=== PATIENT | male | born 1945 | race Caucasian/White ===

== ENCOUNTER 2017-03-09 07:39 | Emergency (ER) | payer MEDICARE, OTHER ==
[~2017-03-09] VITALS: Ht 172.7 cm; Wt 79.5 kg
[~2017-03-09 07:39] MED LIST: AMLO-147 PO; ASPI-664 PO; ATOR40TA68 PO; CANA100T PO; CARI350T PO; GABA100C14 PO; LANT3I SC; LIRA0.6P SQ; NAPR-260 PO
[2017-03-09 07:42] VITALS: Ht 172.7 cm; Wt 79.5 kg
[2017-03-09 08:33] LABS: ADD SCAN DIFF NO
[2017-03-09 08:38] LABS: BASOPHILS % 0.4 % (0.0-2.0); EOSINOPHILS # 0.1 10^3/ul (0.0-0.5); HEMATOCRIT 48.5 % (42.0-52.0); HEMOGLOBIN 16.6 g/dl (14.0-18.0); LYMPHOCYTES # 1.6 10^3/ul (0.8-2.9); LYMPHOCYTES % 23.1 % (15.0-51.0); MEAN CORPUSCULAR HGB CONC 34.2 g/dl (32.0-37.0); MEAN CORPUSCULAR VOLUME 84.6 fl (82.0-101.0); MEAN PLATELET VOLUME 12.1 fl (7.4-10.4); MONOCYTE # 0.5 10^3/ul (0.3-0.9); NEUTROPHIL # 4.8 10^3/ul (1.6-7.5); NEUTROPHILS % 68.2 % (39.0-77.0); PLATELET COUNT 196 10^3/UL (140-415); RED BLOOD COUNT 5.73 10^6/ul (4.70-6.10); RED CELL DISTRIBUTION WIDTH 12.2 % (11.5-14.5)
[2017-03-09 08:57] LABS: ANION GAP 16 (8-16); BLOOD UREA NITROGEN 13 mg/dl (7-20); CALCIUM 9.4 mg/dl (8.4-10.2); CARBON DIOXIDE 25 mmol/L (21-31); CHLORIDE 102 mmol/L (97-110); CREATININE 0.63 mg/dl (0.61-1.24); GLUCOSE 362 mg/dl (70-220); POTASSIUM 4.1 mmol/L (3.5-5.1); SODIUM 139 mmol/L (135-144)
--- NOTE | 2017-03-09 09:06 | RADRPT ---
PROCEDURE: XR Chest. CLINICAL INDICATION: Chest pain TECHNIQUE: Single frontal view of the chest was obtained COMPARISON: 08/01/2016 FINDINGS: The heart is enlarged. The thoracic aorta is calcified. There are mild bibasilar atelectatic changes. The lungs are otherwise clear. There is no pleural effusion or pneumothorax. RPTAT: AA IMPRESSION: Mild cardiomegaly. Calcified aorta consistent with atherosclerotic disease. Mild linear bibasilar atelectatic changes. .Max Conway MD, Date Time Electronically viewed and signed by .Max Conway MD, on 03/09/2017 09:06 .S/
[2017-03-09 09:21] LABS: TROPONIN-I < 0.012 ng/ml (0.00-0.12)
[2017-03-09 09:23] LABS: INR 0.95; PARTIAL THROMBOPLASTIN TIME 28.7 Sec (25.0-35.0); PROTIME 12.7 Sec (12.2-14.2)
[2017-03-09 09:26] LABS: D-DIMER 300.43 ng/ml (<460)
[2017-03-09 09:30] VITALS: BP 157/88; PULSE 107; RESP 20
[2017-03-09] MEDS ORDERED: ACET500C5 PO (09:31)
--- NOTE | 2017-03-09 09:32 | ERD ---
ER Documentation Chief Complaint Date/Time DATE: 03/09/17 TIME: 09:32 Chief Complaint back pain radiating to chest x 3 weeks after lifting heavy box HPI 71-year-old male with a history of diabetes and hypertension presenting with left-sided chest pain for the past month. He states the pain is occasionally in his left upper back and also in the left side of his chest, sharp, constant, worse with deep inspiration. He has had no associated cough or phlegm production. He has no associated fever, chills, shortness of breath, leg swelling or leg pain. He has a very remote history of back injury after lifting a heavy box, however there is no preceding trauma to his back and chest pain 1 month ago. Pain is not worse with exertion. He denies any dizziness or associated diaphoresis. He has been taking naproxen for the pain with some relief. No recent travel, immobilization, or surgeries. No history of blood clots ROS All systems reviewed and are negative except as per history of present illness. Medications Home Meds Active Scripts Acetaminophen* (Tylophen*) 500 Mg Capsule, 2 CAP PO Q8H Y for PAIN AND OR ELEVATED TEMP, #20 CAP Prov:TAM MORENO MD 03/09/17 Carisoprodol* (Soma*) 350 Mg Tablet, 350 MG PO TID Y for MUSCLE SPASMS, #15 TAB Prov:MALKA DIAL MD 08/01/16 Naproxen* (Naprosyn*) 500 Mg Tablet, 500 MG PO BID Y for PAIN AND/OR INFLAMMATION, #30 TAB Prov:MALKA DIAL MD 08/01/16 Reported Medications Insulin Glargine* (Lantus*) 100 Unit/Ml Soln, 20 UNIT SC DAILY, #1 VIAL 08/01/16 Gabapentin* (Gabapentin*) 100 Mg Capsule, 100 MG PO TID, #90 CAP 08/01/16 Atorvastatin* (Atorvastatin*) 40 Mg Tablet, 40 MG PO QHS, #30 TAB 08/01/16 Canagliflozin (Invokana) 100 Mg Tablet, 100 MG PO DAILY, TAB 08/01/16 Amlodipine Besylate* (Amlodipine Besylate*) 10 Mg Tablet, 10 MG PO DAILY, #30 TAB 08/01/16 Liraglutide (Victoza 2-Akash) 0.6 Mg/0.1 Ml Pen.injctr, 1.2 MG SQ DAILY, SYR 08/01/16 Aspirin* (Aspirin* EC) 81 Mg Tablet.dr, 81 MG PO DAILY, TAB 08/01/16 Allergies Allergies: Coded Allergies: No Known Allergy (Unverified , 05/01/16) PMhx/Soc History of Surgery: No Anesthesia Reaction: No Hx Neurological Disorder: No Hx Respiratory Disorders: No Hx Cardiac Disorders: Yes (HTN) Hx Psychiatric Problems: No Hx Miscellaneous Medical Probl: Yes (DM) Hx Alcohol Use: Yes Hx Substance Use: No Hx Tobacco Use: No Smoking Status: Never smoker FmHx Family History: No diabetes Physical Exam Vitals Vital Signs Date Time Temp Pulse Resp B/P Pulse Ox O2 Delivery O2 Flow Rate FiO2 03/09/17 09:30 107 20 157/88 99 Room Air 03/09/17 08:02 100 17 151/82 100 Room Air 03/09/17 07:42 97.7 98 18 175/87 97 Physical Exam Const: Well-appearing, no distress Head: Atraumatic Eyes: Normal Conjunctiva ENT: Normal External Ears, Nose and Mouth. Neck: Full range of motion..~ No meningismus. Resp: Clear to auscultation bilaterally Cardio: Regular rate and rhythm, no murmurs Abd: Soft, non tender, non distended. Normal bowel sounds Skin: No petechiae or rashes Back: No midline or flank tenderness Ext: No cyanosis, or edema Neur: Awake and alert Psych: Normal Mood and Affect Result Diagram: 03/09/17 0820 03/09/17 0820 Results 24 hrs Laboratory Tests Test 03/09/17 08:20 White Blood Count 7.010^3/ul Red Blood Count 5.7310^6/ul Hemoglobin 16.6g/dl Hematocrit 48.5% Mean Corpuscular Volume 84.6fl Mean Corpuscular Hemoglobin 29.0pg Mean Corpuscular Hemoglobin Concent 34.2g/dl Red Cell Distribution Width 12.2% Platelet Count 10252^3/UL Mean Platelet Volume 12.1fl Neutrophils % 68.2% Lymphocytes % 23.1% Monocytes % 7.0% Eosinophils % 1.0% Basophils % 0.4% Nucleated Red Blood Cells % 0.0/100WBC Neutrophils # 4.810^3/ul Lymphocytes # 1.610^3/ul Monocytes # 0.510^3/ul Eosinophils # 0.110^3/ul Basophils # 0.010^3/ul Nucleated Red Blood Cells # 0.010^3/ul Prothrombin Time 12.7Sec Prothrombin Time Ratio 1.0 INR International Normalized Ratio 0.95 Activated Partial Thromboplast Time 28.7Sec D-Dimer 300.43ng/ml D-Dimer Comment Sodium Level 139mmol/L Potassium Level 4.1mmol/L Chloride Level 102mmol/L Carbon Dioxide Level 25mmol/L Anion Gap 16 Blood Urea Nitrogen 13mg/dl Creatinine 0.63mg/dl Glucose Level 362mg/dl Calcium Level 9.4mg/dl Troponin I < 0.012ng/ml Procedures/MDM EKG: Rate/Rhythm: Sinus tachycardia at 102 bpm QRS, ST, T-waves: No changes consistent w/ acute ischemia Impression: No evidence of ischemia or arrhythmia Chest x-ray does not show any acute abnormalities Labs: CBC and BMP within normal limits other than hyperglycemia. Troponin within normal limits. D-dimer within normal limits MDM The patient presents with chest pain. Vitals are stable. I considered acute coronary syndrome, pulmonary embolism, aortic dissection, pneumothorax among other diagnoses. However have a low suspicion for these based on my history, exam and workup. Labs were notable for hyperglycemia but did not show evidence of ketoacidosis. Patient was advised to follow-up with his primary care physician in the next 2-3 days. I reassured him that his symptoms are likely not secondary to life-threatening emergency. Return precautions were discussed. Patient was discharged in stable condition. Patient's blood pressure was elevated (>120/80) but appears stable without evidence of hypertension emergency or urgency. The patient was counseled about the risks of hypertension and uncontrolled diabetes and urged to pursue outpatient monitoring and therapy within a week with their primary care physician. Departure Diagnosis: Primary Impression: Chest pain, pleuritic Additional Impressions: Upper back pain on left side Hyperglycemia due to type 2 diabetes mellitus Diabetes mellitus usp insulin use: unspecified termite treater helper insulin use status Qualified Code: E11.65 - Type 2 diabetes mellitus with hyperglycemia, unspecified usp insulin use status Condition: Stable Patient Instructions: Back Pain (Acute Or Chronic), Chest Pain, Uncertain Cause Referrals: [facility] Usted se cortez hecho un examen mdico de control que le indica que no est en mariann condicin que requiera tratamiento urgente en el Departamento de Emergencia. Un estudio ms profundo y el tratamiento de jon condicin pueden esperar sin ningn riesgo hasta que usted sea atendida/o en el consultorio de jon mdico o mariann cl suze. Es responsabilidad suya arreglar mariann benito para el seguimiento del michael. MANEJO DE CONDICIONES NO URGENTES EN EL FUTURO 1) Si usted tiene un mdico de atencin primaria: Usted debera llamar a jon mdico de atencin primaria antes de venir al departamento de emergencia. Despus de las horas de consultorio, jon doctor o jon asociado/a est disponible por telfono. El mdico o enfermero de marino en el servicio telefnico puede asesorarle por keynaa medio para atender el problema, o michael contrario se puede programar mariann benito. 2) Si usted no tiene un mdico de atencin primaria: Llame al mdico o clnica de referencia que aparece abajo rowdy las horas de consultorio para hacer mariann benito para que le vean. CLINICAS: [facility] [phone] [facility] [phone] [facility] [phone] [facility] [phone] [address] [place] [id number] [phone] [facility] [phone] MD Mar 09, 2017 09:32
== END 2017-03-09 09:43 | disposition home or self-care (01) ==
LOC: E/R 07:39
DX: R07.81 Pleurodynia (principal); M54.9 Dorsalgia, unspecified; E11.65 Type 2 diabetes mellitus with hyperglycemia; I10 Essential (primary) hypertension; Z79.4 Long term (current) use of insulin; Z79.82 Long term (current) use of aspirin
CPT/HCPCS: 36415; 71010; 80048; 84484; 85025; 85378; 85610; 85730; 93005

== ENCOUNTER 2017-08-22 05:36 | Emergency (ER) | payer MEDICARE, OTHER ==
[~2017-08-22] VITALS: Ht 167.6 cm; Wt 78.8 kg
[~2017-08-22 05:36] MED LIST changes: +ACET500C5 PO
[2017-08-22 05:40] VITALS: Ht 167.6 cm; Wt 78.8 kg
[2017-08-22] MEDS ORDERED: CEPH-443 PO (07:03)
[2017-08-22] MEDS ORDERED: MUPI22OI2 TOP (07:04)
--- NOTE | 2017-08-22 14:20 | ERD ---
ER Documentation Chief Complaint Chief Complaint rash/itch/abrasions bilateral denominational areas x 3 weeks.also with lip sores HPI This is a 72-year-old male who presents the emergency department today complaining of a rash on both sides of his face for the past 3 weeks and also a "sore on his lip" and lip swelling. States that the rash itches. Patient is here with his son. States that he went to his clinic a few weeks ago and was supposed to have an appointment for beauty specialist however his appointment got canceled and has not been rescheduled. States that he thinks that he initially cut himself shaving and has now had some weeping from the wound area. Denies any fevers or chills. He does have a history of diabetes and hypertension and he takes Lantus, aspirin atorvastatin and amlodipine. States he thinks it might be an allergic reaction to the insulin and other medications he is taking ROS All systems reviewed and are negative except as per history of present illness. Medications Home Meds Active Scripts Mupirocin* (Bactroban*) 2% -22 Gram Oint...g., 1 APPLIC TOP BID for 7 Days, EA Prov:AVANI WOLFE PA-C 08/22/17 Cephalexin* (Keflex*) 500 Mg Capsule, 500 MG PO QID for 7 Days, CAP Prov:AVANI WOLFE PA-C 08/22/17 Acetaminophen* (Tylophen*) 500 Mg Capsule, 2 CAP PO Q8H Y for PAIN AND OR ELEVATED TEMP, #20 CAP Prov:TAM MORENO MD 03/09/17 Carisoprodol* (Soma*) 350 Mg Tablet, 350 MG PO TID Y for MUSCLE SPASMS, #15 TAB Prov:MALKA DIAL MD 08/01/16 Naproxen* (Naprosyn*) 500 Mg Tablet, 500 MG PO BID Y for PAIN AND/OR INFLAMMATION, #30 TAB Prov:MALKA DIAL MD 08/01/16 Reported Medications Insulin Glargine* (Lantus*) 100 Unit/Ml Soln, 20 UNIT SC DAILY, #1 VIAL 08/01/16 Gabapentin* (Gabapentin*) 100 Mg Capsule, 100 MG PO TID, #90 CAP 08/01/16 Atorvastatin* (Atorvastatin*) 40 Mg Tablet, 40 MG PO QHS, #30 TAB 08/01/16 Canagliflozin (Invokana) 100 Mg Tablet, 100 MG PO DAILY, TAB 08/01/16 Amlodipine Besylate* (Amlodipine Besylate*) 10 Mg Tablet, 10 MG PO DAILY, #30 TAB 08/01/16 Liraglutide (Victoza 2-Akash) 0.6 Mg/0.1 Ml Pen.injctr, 1.2 MG SQ DAILY, SYR 08/01/16 Aspirin* (Aspirin* EC) 81 Mg Tablet.dr, 81 MG PO DAILY, TAB 08/01/16 Allergies Allergies: Coded Allergies: No Known Allergy (Unverified , 08/22/17) PMhx/Soc History of Surgery: No Anesthesia Reaction: No Hx Neurological Disorder: No Hx Respiratory Disorders: No Hx Cardiac Disorders: Yes (HTN high cholesterol) Hx Psychiatric Problems: No Hx Miscellaneous Medical Probl: Yes (DM) Hx Alcohol Use: Yes Hx Substance Use: No Hx Tobacco Use: No Smoking Status: Never smoker Physical Exam Vitals Vital Signs Date Time Temp Pulse Resp B/P Pulse Ox O2 Delivery O2 Flow Rate FiO2 08/22/17 05:40 98.0 103 20 139/79 99 Physical Exam Const: NAD, talkative Head: Atraumatic Eyes: Normal Conjunctiva ENT: Normal External Ears, Nose and Mouth. No evidence of mouth sore or lip swelling Neck: Full range of motion..~ No meningismus. Resp: Clear to auscultation bilaterally Cardio: Regular rate and rhythm, no murmurs Abd: Soft, non tender, non distended. Normal bowel sounds Skin: localized erythema bilateral temples with mild crusting Back: No midline or flank tenderness Ext: No cyanosis, or edema Neur: Awake and alert Psych: Normal Mood and Affect Procedures/MDM This is a 72-year-old male who presents to the emergency department today complaining of a rash on both sides of his face for the past 3 weeks as well as a lip sore and lip swelling. Patient has no evidence of lip sore or Angio-Seal edema on physical exam. Patient does take amlodipine however he has been taking it for long period of time and I do not feel that this is causing it although I have explained that some blood pressure medications may cause lip swelling. Patient is talkative in the exam room low suspicion for anaphylaxis. Patient is afebrile and otherwise well-appearing. He appears to have some localized erythema and some crusting in the areas on his bilateral temples that may have initially been caused by shaving and scratching the area. His symptoms at this time appear most consistent with impetigo. Have low suspicion for cellulitis, deep space tracking infection. Low suspicion for fungal infection, sepsis, SJS, meningitis. Patient was given a prescription for Bactroban and Keflex. He was instructed to follow back up with his primary care doctor and follow-up on his dermatology referral. Patient and son understood At this time the patient is stable for discharge and outpatient management. Patient should follow up with their PCP in the next 1-2 days. They may return to the emergency department sooner for any persistent or worsening of symptoms. Patient and son understood and agreed with the plan. Departure Diagnosis: Primary Impression: Rash and other nonspecific skin eruption Condition: Fair Patient Instructions: Self-Care for Skin Rashes Referrals: your clinic ARTURO CEVALLOS MD,LION LIZARRAGA,RADHA LOPEZ,JACQUELINE ANDERSON,FEI MCCAULEY,MAURILIO VILLATORO Additional Instructions: Llame al doctor MAZAKIYA y jordan mariann [place] PARA DENTRO DE 1-2 [place].Dgale a la secretaria que nosotros le instruimos hacer esta [place].Avise o llame si jon condicin se empeora antes de la [place]. Regresa aqui si peor o no mejor. Make an appointment with your primary care doctor for referral to beauty specialist. Use medications as prescribed. Do not scratch the area AVANI WOLFE PA-C Aug 22, 2017 14:20
== END 2017-08-22 07:20 | disposition home or self-care (01) ==
LOC: FTE 05:36
DX: R21 Rash and other nonspecific skin eruption (principal); I10 Essential (primary) hypertension; E11.9 Type 2 diabetes mellitus without complications; Z79.4 Long term (current) use of insulin; Z79.82 Long term (current) use of aspirin
CPT/HCPCS: 99284

== ENCOUNTER 2017-09-28 06:38 | Emergency (ER) | END 2017-09-28 09:10 | disposition home or self-care (01) ==

== ENCOUNTER 2019-04-04 14:14 | Emergency (ER) | payer MEDICARE, OTHER ==
[~2019-04-04] VITALS: Ht 152.4 cm; Wt 81.6 kg
[~2019-04-04 14:14] MED LIST changes: +ALBU18HF INHALATION; -ASPI-664 PO; +ASPI-817 PO; +CEPH-443 PO; +IBUP-1542 PO; +MUPI22OI2 TOP; -NAPR-260 PO; +NAPR-985 PO; +OSEL75CA23 PO; +PRED20TA PO
[2019-04-04 14:21] VITALS: BP 157/72; PULSE 88; RESP 16; Ht 152.4 cm; Wt 81.6 kg
--- NOTE | 2019-04-04 15:15 | ERD ---
ER Documentation Chief Complaint Chief Complaint L neck/ shoulder pain/ numb to L arm intermit x1mo; no trauma. +ROM HPI 74-year-old male, previously healthy, presents to the emergency department, complaining of left shoulder pain for 1 month. No history of recent trauma. The pain is dull, constant, exacerbated by shoulder movement. The pain radiates from the neck down to the hand. No reports of weakness, numbness or tingling. The patient has been taking naproxen with mild improvement of the symptoms. Otherwise, no rashes, no fever or chills, no chest pain, no palpitations or shortness of breath. ROS All systems reviewed and are negative except as per history of present illness. Medications Home Meds Active Scripts Hydrocodone/Acetaminophen (Rupert 5-325 Tablet) 1 Each Tablet, 1 TAB PO BID PRN for PAIN, #10 TAB Prov:RENETTA MOREL MD 04/04/19 Prednisone* (Prednisone*) 20 Mg Tab, 40 MG PO DAILY for 4 Days, TAB Prov:RENETTA MOREL MD 04/04/19 Albuterol Sulfate* (Ventolin HFA*) 18 Gm Hfa.aer.ad, 2 PUFF INHALATION Q4H, #1 INHALER Prov:MELY WHITT 09/28/17 Oseltamivir Phosphate* (Tamiflu*) 75 Mg Capsule, 75 MG PO BID for 5 Days, CAP Prov:MELY WHITT 09/28/17 Prednisone* (Prednisone*) 20 Mg Tab, 40 MG PO DAILY for 4 Days, TAB Prov:MELY WHITT 09/28/17 Ibuprofen* (Motrin*) 600 Mg Tab, 600 MG PO Q6, #30 TAB Prov:MELY WHITT 09/28/17 Mupirocin* (Bactroban*) 2% -22 Gram Oint...g., 1 APPLIC TOP BID for 7 Days, EA Prov:AVANI WOLFE PA-C 08/22/17 Cephalexin* (Keflex*) 500 Mg Capsule, 500 MG PO QID for 7 Days, CAP Prov:AVANI WOLFE PA-C 08/22/17 Acetaminophen* (Tylophen*) 500 Mg Capsule, 2 CAP PO Q8H PRN for PAIN AND OR ELEVATED TEMP, #20 CAP Prov:TAM MORENO MD 03/09/17 Carisoprodol* (Soma*) 350 Mg Tablet, 350 MG PO TID PRN for MUSCLE SPASMS, #15 TAB Prov:MALKA DIAL MD 08/01/16 Naproxen* (Naprosyn*) 500 Mg Tablet, 500 MG PO BID PRN for PAIN AND/OR INFLAMMAT ION, #30 TAB Prov:MALKA DIAL MD 08/01/16 Reported Medications Insulin Glargine* (Lantus*) 100 Unit/Ml Soln, 20 UNIT SC DAILY, #1 VIAL 08/01/16 Gabapentin* (Gabapentin*) 100 Mg Capsule, 100 MG PO TID, #90 CAP 08/01/16 Atorvastatin* (Atorvastatin*) 40 Mg Tablet, 40 MG PO QHS, #30 TAB 08/01/16 Canagliflozin (Invokana) 100 Mg Tablet, 100 MG PO DAILY, TAB 08/01/16 Amlodipine Besylate* (Amlodipine Besylate*) 10 Mg Tablet, 10 MG PO DAILY, #30 TAB 08/01/16 Liraglutide (Victoza 2-Akash) 0.6 Mg/0.1 Ml Pen.injctr, 1.2 MG SQ DAILY, SYR 08/01/16 Aspirin* (Aspirin* EC) 81 Mg Tablet.dr, 81 MG PO DAILY, TAB 08/01/16 Allergies Allergies: Coded Allergies: No Known Allergy (Unverified , 08/22/17) PMhx/Soc History of Surgery: No Anesthesia Reaction: No Hx Neurological Disorder: No Hx Respiratory Disorders: No Hx Cardiac Disorders: Yes (HTN high cholesterol) Hx Psychiatric Problems: No Hx Miscellaneous Medical Probl: Yes (DM) Hx Alcohol Use: Yes Hx Substance Use: No Hx Tobacco Use: No FmHx Family History: No diabetes, No coronary disease Physical Exam Vitals Vital Signs Date Temp Pulse Resp B/P (MAP) Pulse Ox O2 O2 Flow FiO2 Time Delivery Rate 04/04/19 98.0 88 16 157/72 97 14:21 (100) Physical Exam Const: No acute distress Head: Atraumatic Eyes: Normal Conjunctiva ENT: Normal External Ears, Nose and Mouth. Neck: Full range of motion. No meningismus. Resp: Clear to auscultation bilaterally Cardio: Regular rate and rhythm, no murmurs Abd: Soft, non tender, non distended. Normal bowel sounds Skin: No petechiae or rashes Back: No midline or flank tenderness Ext: No cyanosis, or edema Neur: Awake and alert Psych: Normal Mood and Affect Results 24 hrs Current Medications Medications Dose Sig/Belkys Start Time Status Last (Trade) Ordered Route PRN Stop Time Admin Dose Reason Admin 8 mg ONCE ONCE 04/04/19 DC 04/04/19 Dexamethasone IM 15:30 04/04/19 15:30 (Decadron) 15:31 EKG read by me: Rate/Rhythm: Regular rate and rhythm at a rate of 84 Intervals: Normal No acute ST changes. No T wave inversion Impression: No evidence of acute ischemia or arrhythmia Procedures/MDM left shoulder pain: no red flags. Differential diagnosis include but not limited to: Shoulder contusion, rotator cuff injury, tendon/ligament injury, arthritis; low suspicion for fracture, dislocation, septic arthritis. Neurovascular exam grossly intact. no clinical findings suggestive of acute infectious process, no acute deformity, no edema, no rashes. Physical examination and clinical presentation consistent most likely with shoulder tendinitis. During the ED course the patient received treatment with DEXA IM presenting overall improvement of the symptoms. Results and clinical impression discussed with the patient who agrees with management. The patient is stable to be treated outpatient and will be discharged home with recommendations for ice, prednisone, Rupert and close monitoring. The patient was instructed to follow up with the primary care provider in the next 48h. If symptoms persist, worsen or new symptoms develop, then patient should return to the ED immediately. Instructions explained and given to patient with acknowledgment and demonstrated understanding. Disclaimer: Inadvertent spelling and grammatical errors are likely due to EHR/dictation software use and do not reflect on the overall quality of patient care. Also, please note that the electronic time recorded on this note does not necessarily reflect the actual time of the patient encounter. Departure Diagnosis: Primary Impression: Left shoulder tendinitis Condition: Stable Additional Instructions: Muchas nevaeh por [facility] para jon servicio. Esperamos que en jon visita a la tonny de emergencia jon problema medico haya sido solucionado y que se sienta mucho mejor. Para estar seguros que jon mejoria sigue en proceso, le pedimos el favor de hacer mariann benito de seguimiento medico con jon doctor primario en los proximos 2-4 carr. Lleve con usted estos documentos y las medicinas recetadas. Si [place] sintomas empeoran, NO SE ESPERE, por favor regrese a tonny de emergencia INMEDIATAMENTE. En michael que usted no tenga un mdico de atencin primaria: Llame al mdico o clnica comunitaria de referencia que aparece abajo rowdy las horas de consultorio para hacer mariann benito para que le vean. CLINICAS: [facility] [phone] [facility] [phone] [facility] [phone] [facility] [phone] [facility] [phone] [address] [facility]. [phone] RENETTA GERARDO MD Apr 04, 2019 15:15
[2019-04-04] MEDS ORDERED: DEXAMETHASONE 10 MG/ML 1 ML INJ IM ONE (15:30)
[2019-04-04] MEDS ORDERED: PRED20TA PO (15:42)
[2019-04-04] MEDS ORDERED: HYDR-4011 PO (15:42)
== END 2019-04-04 15:50 | disposition home or self-care (01) ==
LOC: FTE 14:14
DX: M77.9 Enthesopathy, unspecified (principal); I10 Essential (primary) hypertension; E11.9 Type 2 diabetes mellitus without complications; Z79.4 Long term (current) use of insulin; Z79.82 Long term (current) use of aspirin
CPT/HCPCS: 93005; 96372; 99284; J1100